=== PATIENT | male | born 1995 | race Caucasian/White ===

== ENCOUNTER 2017-01-07 15:33 | Emergency (ER) | payer MEDICAID ==
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
[2017-01-07 17:41] VITALS: BP 141/76
== END 2017-01-07 17:35 | disposition home or self-care (01) ==
LOC: ER 15:33
DX: S89.92XA Unspecified injury of left lower leg, initial encounter (principal); M79.605 Pain in left leg; M79.1 Myalgia; V29.9XXA Motorcycle rider (driver) (passenger) injured in unspecified traffic accident, initial encounter
CPT/HCPCS: 99283